=== PATIENT | female | born 1950 ===

== ENCOUNTER 2024-09-16 14:44 | Emergency (ER) | payer SELFPAY ==
[~2024-09-16] VITALS: Ht 157.5 cm; Wt 78.5 kg
--- NOTE | 2024-09-16 15:09 | ERN ---
ED Note History of Present Illness Stated Complaint: SENT BY Chief Complaint: Abscess Time Seen by MD: 14:46 Dictation: Patient is a 74-year-old female here from a local clinic diagnosed with a right anterior chest wall abscess. She was worked up with the clinic today was prescribed antibiotics however she was referred to the emergency room to I and D the abscess. No fever no chills no nausea vomiting. Allergies: Coded Allergies: Sulfa (Sulfonamide Antibiotics) (Unverified Allergy, Unknown, 09/16/24) Past Medical History Past Medical History: Hypertension Surgical History: None History: Not Applicable RN Note Reviewed/Agreed w/PFSH: Yes Review of System Dictation CONSTITUTIONAL: Negative except for HPI HEAD/FACE: Negative except for HPI EENT: Negative except for HPI RESPIRATORY: Negative except for HPI GASTROINTESTINAL/ABDOMINAL: Negative except for HPI GENITOURINARY: Negative except for HPI MUSCULOSKELETAL: Negative except for HPI INTEGUMENTARY: Negative except for HPI right anterior chest abscess NEUROLOGICAL/PSYCH: Negative except for HPI HEMATOLOGIC/LYMPHATIC: Negative except for HPI All Systems Negative, Except as noted above. 13 point review of systems assessed and all negative except for above. Initial Vital Sign VS Vital Signs Date Time Temp Pulse Resp B/P (MAP) Pulse Ox O2 Delivery O2 Flow Rate FiO2 09/16/24 14:46 97.9 77 16 179/77 96 Room Air 0 Physical Exam Dictation Vital Signs reviewed General Appearance: Alert, oriented x 3, no acute distress, well developed, nourished. Head and Face: non-traumatic. Eyes: PERRL, pink conjunctivas, eyelid no trauma, anterior chamber with arcus senilis. Ears: Pinnas intact and no signs of trauma or erythema ear canals clear and no discharge TM no erythema Nose: No discharge, no bleeding. Oropharynx: Mouth normal, tongue pink, pharynx clear,no erythema, tonsils no exudates, no abscesses noted, mucous membrane moist Neck: Supple, non-tender, no thyromegaly, no masses, no JVD, no bruits Breast:Deferred Chest:No tenderness, no crepitus, no paradoxical movement, no retractions Lungs:Clear, well-ventilated, symmetric, no rales, no wheezing, no rhonchi, no stridor, good breath sounds bilaterally Heart: Regular rate, regular rhythm, no murmur, no gallops Vascular: no peripheral edema, Abdomen: Soft, positive bowel sounds, nondistended, no guarding, nontender, no rebound, no masses no hepatomegaly, no splenomegaly, no Blum's sign, no hernias. Rectal: Deferred Genital: Deferred Neurological: Normal speech, motor function intact, sensory function intact Musculoskeletal: Neck nontender, full range of motion, back nontender, full range of motion, Extremities: nontender, full range of motion Skin: Color pink, d right anterior chest wall abscess/mass, 1.5 x 3 cm. Lymphatic: Deferred Results (Laboratory/Radiology) Labs Reviewed?: Yes ED Course ED Course Orders Procedure Category Date Status Time Lidocaine Hcl 1% 20ml PHA 09/16/24 In Process Vial (Lidocaine Hc 15:30 Acetaminophen 500mg PHA 09/16/24 Complete Tab (Tylenol 500mg T 15:30 Aerobic Culture SKYLER 09/16/24 Logged 15:06 Current Medications Medications (Trade) Dose Ordered Sig/Cam Route PRN Reason Start Time Stop Time Status Last Admin Dose Admin Acetaminophen (TYLenol 500MG TAB) 1,000 mg ONCE ONCE PO 09/16/24 15:30 09/16/24 15:31 DC Lidocaine HCl (Lidocaine HCl 1% 20ml Vial) 10 ml ONCE INJ 09/16/24 15:30 10/16/24 15:29 Vital Signs Date Time Temp Pulse Resp B/P (MAP) Pulse Ox O2 Delivery O2 Flow Rate FiO2 09/16/24 14:46 97.9 77 16 179/77 96 Room Air 0 Medical Decision Making [facility] 2014 PROCEDURE EXPLAINED TO PATIENT SHE WOULD AGREED TO PROCEED BRIAN AYON IN ROOM RIGHT CHEST LESION PREPPED STERILELY WITH BETADINE 3 ML 1% LIDOCAINE PLAIN USED FOR LOCAL ANESTHESIA 2 CM INCISION MADE THE LESION WAS CYSTIC WITH A PROXIMALLY 3 ML OF HARD DRAINAGE LOCULATIONS WERE EXPLORED IRRIGATED WITH BETADINE CULTURES TO LAB PATIENT TOLERATED WELL DX & DISP Disposition: Discharge Departure Impression: Primary Impression: Sebaceous hyperplasia of chest Additional Impression: Sebaceous cyst Condition: Stable Scripts Ibuprofen (Ibuprofen 800 mg Tab) 800 Mg Tab 800 MG PO Q8H PRN for fever or pain, #30 TAB 0 Refills Prov: DEBORA SHEPHERD ANIMAL HERDER 09/16/24 Clindamycin HCl (Clindamycin HCl) 300 Mg Capsule 1 CAP PO QID for 10 Days, #40 CAP 0 Refills Prov: DEBORA SHEPHERD ANIMAL HERDER 09/16/24 Additional Instructions: FOLLOW-UP WITH PRIMARY CARE PROVIDER IN 1 TO 2 DAYS. TAKE MEDICATIONS DIRECTED HERE IN THE EMERGENCY ROOM. OKAY TO CONTINUE HOME MEDICATIONS UNLESS OTHERWISE DISCUSSED DURING YOUR VISIT IN THE EMERGENCY ROOM TODAY. RETURN TO YOUR NEAREST EMERGENCY ROOM IF SYMPTOMS WORSEN OR IF THERE IS NO IMPROVEMENT. CALL 911 IF YOU NEED IMMEDIATE ASSISTANCE. TAKE TYLENOL OR MOTRIN [id number] NEEDED AND IF NO CONTRAINDICATIONS ARE PRESENT. INCREASE ORAL HYDRATION. A WOUND CULTURE OR URINE CULTURE WAS ORDERED HERE IN THE EMERGENCY ROOM DEPARTMENT PLEASE FOLLOW-UP WITH PRIMARY CARE PROVIDER AND ADVISE THEM TO GET REPEAT PORTS FROM OUR FACILITY. IF YOU HAD ANY PAMELA WRAP/SPLINTS THAT WERE APPLIED HERE, PLEASE DO NOT REMOVE THEM UNTIL YOU SEE YOUR PRIMARY CARE OR SPECIALTY. OKAY TO SHOWER, THEN COVER INCISION SITE WITH DRESSING. TAKE ANTIBIOTICS DIRECTED UNTIL GONE. FOLLOW UP WITH YOUR DOCTOR AT THE URGENT CARE IN THE NEXT SEVERAL DAYS FOR MANAGEMENT Time of Disposition: 20:28 I have reviewed the case, and I agree with, Diagnosis and Plan DEBORA SHEPHERD NP Sep 16, 2024 15:09
[2024-09-16] MEDS: acetaMINOPHEN 500 MG TABLET PO ONE (15:30)
[2024-09-16] MEDS: LIDOCAINE HCL 1% 20 ML VIAL INJ SCH (15:30)
[2024-09-16] MEDS ORDERED: IBUP-2077 PO (20:29)
[2024-09-16] MEDS ORDERED: CLIN-141 PO (20:29)
--- NOTE | 2024-09-16 20:30 | NUR ---
I&D WAS DONE BY DEBORA SHEPHERD NP AT BEDSIDE. SITE WAS CULTURED AND SENT TO LAB. SITE WAS BANDAGED WITH NON-ADHERENT BANDAGE AND WOUND CARE INSTRUCTIONS GIVEN TO PT.
[2024-09-16] MEDS: CLINDAMYCIN 150 MG CAP PO ONE (20:35)
[2024-09-16 20:39] VITALS: BP 155/79; PULSE 71; RESP 18; TEMP 97.7; O2SAT 98
== END 2024-09-16 20:40 | disposition home or self-care (01) ==
LOC: EDH 14:44
DX: L72.3 Sebaceous cyst (principal); I10 Essential (primary) hypertension; Z88.2 Allergy status to sulfonamides
CPT/HCPCS: 10060; 87070; 99283